=== PATIENT | female | born 1975 | race Caucasian/White ===

== ENCOUNTER 2024-09-04 13:21 | Outpatient (OUT) | payer BC, SELFPAY ==
--- NOTE | 2024-09-01 07:39 | V.VEINS.HP ---
Vital Signs 09/01/24 07:52 09/04/24 13:46 Height 5 ft 9 in Weight 145.15 kg BP 120/74 BP Location Left Brachial BP Position Sitting BP Cuff Size Adult BP Source Manual Cuff Respiration 16 Pulse 77 Pulse Source Monitor Pulse Oximetry (%) 96 Oxygen Delivery Method Room Air Comment The patient's blood pressure is elevated. Varicose Veins Patient is a 49 year old female in this day as a referral from Ruthie Gonsales NP at Dr. Buitrago's office secondary to superficial thrombophlebitis and varicosities with leg swelling and redness. Patient c/o bilateral leg edema and right upper leg pain. 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 Patient has worn bilateral leg knee high compression stockings for >5 years. Patient has no family history that she is aware of of varicose vein disease nor any previous history of blood clots up until this recent diagnosis. ILewis MD personally performed the services described in this documentation, as scribed by Larry Hoffman RN in my presence and it is both accurate and complete. ILarry RN, am scribing for, and in the presence of, Dr. Lewis Wilburn and in the presence of the patient. . thigh: bilateral (Symptoms right > left leg), knee: bilateral, calf: bilateral, ankle: bilateral and roberts: bilateral burning and cramping 8 2 years Worsened in recent months: No standing elevating extremities and exercise Reports limb pain, edema and leg edema History of lower extremity trauma: No Superficial thrombophlebitis: Yes Family history of varicose veins: no Has patient had previous lower extremity venous surgery: No Patient has previously received the following treatment(s) for lower extremity varicose veins: Reports none Does patient have a history of : no Does patient intend to have future pregnancies: no Has patient had lower extremity venous scan with relux testing: No Support hose used: Yes Problems walking or doing physical activity: Yes How does it affect you: Pain causes patient to have to walk or rest and elevate legs Do you walk much: Yes Do you stand much: Yes Review of Systems ROS Status of ROS 10 or more systems reviewed and unremarkable except as noted in history and below Cardiovascular Reports: edema Neurological Reports: weakness in extremities [facility] [place] Medical History (Updated 09/01/24 @ 07:55 by Larry Hoffman) Superficial thrombophlebitis of left leg ?I80.02 - Phlebitis and thrombophlebitis of superficial vessels of left lower extremity (ICD-10) Nonalcoholic fatty liver ?K76.0 - Fatty (change of) liver, not elsewhere classified (ICD-10) Vitamin D deficiency ?E55.9 - Vitamin D deficiency, unspecified (ICD-10) Pain due to varicose veins of both lower extremities ?I83.813 - Varicose veins of bilateral lower extremities with pain (ICD-10) Thalassemia ?D56.9 - Thalassemia, unspecified (ICD-10) Rosacea ?L71.9 - Rosacea, unspecified (ICD-10) Osteoarthritis ?M19.90 - Unspecified osteoarthritis, unspecified site (ICD-10) Primary hypertension ?I10 - Essential (primary) hypertension (ICD-10) Overactive bladder ?N32.81 - Overactive bladder (ICD-10) Mood disorder ?F39 - Unspecified mood [affective] disorder (ICD-10) Restless leg ?G25.81 - Restless legs syndrome (ICD-10) Iron deficiency ?E61.1 - Iron deficiency (ICD-10) Sciatic nerve pain ?M54.30 - Sciatica, unspecified side (ICD-10) Metabolic syndrome ?E88.810 - Metabolic syndrome (ICD-10) IgA deficiency ?D80.2 - Selective deficiency of immunoglobulin A [IgA] (ICD-10) Impaired fasting glucose ?R73.01 - Impaired fasting glucose (ICD-10) Hirsutism ?L68.0 - Hirsutism (ICD-10) Binge eating disorder ?F50.819 - Binge eating disorder, unspecified (ICD-10) Vitamin B12 deficiency ?E53.8 - Deficiency of other specified B group vitamins (ICD-10) ADD (attention deficit disorder) ?F98.8 - Other specified behavioral and emotional disorders with onset usually occurring in childhood and adolescence (ICD-10) Surgical History (Updated 09/04/24 @ 13:56 by Larry Hoffman) History of tonsillectomy and adenoidectomy ?Z90.89 - Acquired absence of other organs (ICD-10) Family History (Updated 09/04/24 @ 13:57 by Larry Hoffman) Other Family history of CHF (congestive heart failure) Family history of cancer Family history of diabetes mellitus Family history of hypertension Social History (Updated 09/04/24 @ 13:57 by Larry Hoffman) Within the past year, how often did you have a drink containing alcohol: never Score interpretation: A score less than 3 is consistent with normal alcohol consumption. Smoking status: Never smoker Non-prescribed substance use: denies use Meds Home Medications and Allergies Home Medications ?Medication ?Instructions ?Recorded ?Confirmed ?Type cariprazine 3 mg capsule (Vraylar) 3 mg PO DAILY 09/01/24 09/01/24 History chlorthalidone 25 mg tablet 25 mg PO DAILY 09/01/24 09/01/24 History diclofenac sodium 2 % topical 1 packet topical BID 09/01/24 09/01/24 History solution in packet fluoxetine 40 mg capsule (Prozac) 40 mg PO DAILY 09/01/24 09/01/24 History lisdexamfetamine 50 mg capsule 50 mg PO DAILY 09/01/24 09/01/24 History (Vyvanse) oxybutynin chloride 15 mg 15 mg PO DAILY 09/01/24 09/01/24 History tablet,extended release 24 hr spironolactone 100 mg tablet 100 mg PO DAILY 09/01/24 09/01/24 History (Aldactone) vitamin B complex (Complex B-100 1 tab PO DAILY 09/01/24 09/01/24 History tablet,extended release) Allergies Allergy/AdvReac Type Severity Reaction Status Date / Time amoxicillin Allergy Mild Rash Verified 09/01/24 07:47 latex Allergy Mild Rash Verified 09/01/24 07:47 nickel Allergy Mild Rash Verified 09/01/24 07:47 Exam Narrative Exam Narrative: Lewis Mckenzie MD personally performed the services described in this documentation, as scribed by Larry Hoffman RN in my presence and it is both accurate and complete. Larry Mckenzie RN, am scribing for, and in the presence of, Dr. Lewis Wilburn and in the presence of the patient. Constitutional Documenting provider has reviewed patient's vital signs: yes Common normals: oriented x3 Nutritional appearance: overweight Cardio Peripheral pulses: posterior tibial pulses present and dorsalis pedis pulses present Extremity Common normals: normal capillary refill General: calf tenderness and edema Right lower extremity: lower leg Right lower leg: inspection and palpation Left lower extremity: lower leg Left lower leg: inspection and palpation Neuro Common normals: oriented x3 Results Additional Findings Additional findings: Bilateral leg reflux u/x reveals bilateral leg great saphenous, small saphenous, and anterior accessory saphenous vein dilatation along with insufficiency. Thrombus noted to superficial varicose veins left calf and hat mender. Lastly, bilateral leg branch saphenous truncal tributary varicosities. Lewis Mckenzie MD personally performed the services described in this documentation, as scribed by Larry Hoffman RN in my presence and it is both accurate and complete. Larry Mckenzie RN, am scribing for, and in the presence of, Dr. Lewis Wilburn and in the presence of the patient. Assessment and Plan Assessment and Plan (1) Pain due to varicose veins of both lower extremities: Plan Patient to continue to wear knee high compression stockings, exercise, rest, and elevation. Patient to return for EVLTs of bilateral GSV's starting with left GSV, followed by EVLT of bilateral small saphenous veins, and lastly EVLTs of bilateral AASVs. Once EVLTs are complete, move forward with microfoam chemical ablation bilateral leg branch saphenous varicosities. Lewis Mckenzie MD personally performed the services described in this documentation, as scribed by Larry Hoffman RN in my presence and it is both accurate and complete. Larry Mckenzie RN, am scribing for, and in the presence of, Dr. Lewis Wilburn and in the presence of the patient.
--- NOTE | 2024-09-01 07:55 | W.VEIN ---
Discharge Plan Discharge Disposition: Home, Self-Care Outpatient Diagnostics: VC Endovenous Ablation 1VeinLT (Routine) Timeframe: 2 Months Facility: [facility] - Location: [facility] Ordered By: Lewis Wilburn Plan of Treatment: EVLT of left GSV Print Language: Moroccan Discharge Date/Time: 09/04/24 16:16
--- NOTE | 2024-09-04 | VEIN_ITS ---
Patient Name: DAREK MADRIGAL MR#: [id number] : 1975 Exam Date: 09/04/2024 Ordering Doctor: DR LEWIS WILBURN M.D. RADIOLOGY REPORT PROCEDURE: VC EXT VENOUS REFLUX ANUM LMTD COMPARISON: None. INDICATIONS: Pain due to varicose veins of bilateral legs I83.813 TECHNIQUE: Duplex imaging of the lower extremity to assess the deep and superficial venous system for the presence of deep or superficial venous incompetence and to document the location and severity of disease. The study includes evaluation of the great saphenous vein (GSV), anterior accessory saphenous vein (AASV) and small saphenous vein (SSV). Patient scanned in reverse Trendelenburg and standing. FINDINGS: RIGHT LOWER EXTREMITY: Saphenofemoral Junction Reflux: Yes 11.9mm 1.2 sec GSV: Diam (mm) Reflux/ Time (sec) Proximal Thigh 7.9 Yes 1.8 Mid Thigh 4.3 Yes 0.4 Distal Thigh 4.3 Yes 0.4 Prox Calf 4.8 Yes 3.8 Mid Calf 4.7 Yes 1.9 Saphenopopliteal Junction Reflux: 5.7mm Yes 0.5 SSV: Proximal Calf 6.3 Yes 0.5 Mid Calf 3.4 Yes 4.6 AASV: Proximal Thigh 6.8 Yes 1.7 Mid Thigh 4.1 Yes 0.6 Distal Thigh Thrombi: No acute or chronic thrombus. Compressibility: Normal. Flow: Mild deep venous reflux. Preforator: Distal medial lower leg 5.6 mm with 1.2s reflux. Mid medial lower leg 5.6 mm with 0.9s reflux. Tech Note: Incompetent varicose vein distal anterior thigh connected to AASV measures 7.8 mm with 4.9s reflux. Varicose vein lateral knee measures 6.6 mm with 4.8s reflux. Varicose vein lateral mid lower leg measures 7.3 mm with 4.7s reflux. Varicose vein medial anterior lower leg measures 4.9 mm with 1.7s reflux. LEFT LOWER EXTREMITY: Saphenofemoral Junction Reflux: Yes 12.4 mm 1.9 sec GSV: Diam (mm) Reflux/Time (sec) Proximal Thigh 7.0 Yes 0.5 Mid Thigh 5.1 Yes 0.6 Distal Thigh 5.7 Yes 0.7 Prox Calf 4.0 Yes 1.3 Mid Calf 3.9 Yes 1.5 Saphenopopliteal Junction Relux: 10.1 mm Yes 4.8 SSV: Proximal Calf 9.9 Yes 4.7 Mid Calf 6.6 Yes 4.7 AASV: Proximal Thigh 7.4 Yes 2.2 Mid Thigh 4.9 Yes 0.6 Distal Thigh Thrombi: Thrombus visualized in varicose veins in proximal posterior calf and mid medial calf. Thrombus extends into a commercial finance manager 9.7mm from PTV. Compressibility: No compressible segments of varicose veins. Flow: Moderate deep venous reflux. Senior Electrical Controls Engineer: Mid posterior calf off SSV measures 4.9 mm with 1.9s reflux. Lateral knee 3.5 mm with 0.9s reflux. Tech Note: Incompetent varicose vein proximal medial lower leg measures 6.9 mm with 3.4s reflux. Varicose vein mid medial thigh measures 4.3 mm with 1.0s reflux. Varicose vein distal lateral thigh measures 7.0 mm with 2.5s reflux. CONCLUSION: 1. Severe right and mild to moderate left great saphenous vein venous insufficiency with dilatation and saphenofemoral junction reflux 2. Severe bilateral small saphenous vein venous insufficiency with dilatation and saphenous popliteal junction reflux 3. Moderate bilateral anterior accessory saphenous venous insufficiency with dilatation 4. Thrombus in superficial varicose veins left calf and commercial finance manager vein 5. Bilateral incompetent perforating veins 6. Bilateral incompetent varicose veins Dictated by: Lewis Wilburn MD on 09/04/2024 at 14:57 Approved by: Lewis Wilburn MD on 09/04/2024 at 15:00
--- NOTE | 2024-09-04 | VEIN_ITS ---
Patient Name: DAREK MADRIGAL MR#: [id number] : 1975 Exam Date: 09/04/2024 Ordering Doctor: DR LEWIS WILBURN M.D. RADIOLOGY REPORT PROCEDURE: [facility] [place] - OFFICE VISIT INITIAL COMPARISON: None. PROGRESS NOTES: 49-year-old female who presents with a long history of lower extremity pain and swelling culminated in in superficial thrombophlebitis along the left medial and posterior calf. The patient was referred by Dr. Buitrago's office. The patient complains of bilateral lower extremity varicose veins with moderate pain despite wearing compression stockings intermittently for the past 5 years. No additional history of deep vein thrombus or pulmonary embolus. 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 The patient denies any signs and symptoms to suggest arterial ischemia. The patient describes a family history significant for congestive heart failure, cancer, diabetes and hypertension. The patient never drinks alcohol. The patient has never smoked. No prescription or illicit drug abuse. Past medical history is significant for sciatic nerve pain with right lateral leg numbness and tingling. Breasts leg, superficial thrombophlebitis, nonalcoholic fatty liver. Vitamin-D deficiency, thalassemia and osteoarthritis. See separate history and physical for medication list. No prior treatment for varicose or spider veins. Nursing notes were reviewed. After history and physical exam I discussed at length the pathophysiology of venous hypertension and possible treatments, therapies and strategies available. We discussed at length the importance of elevating the lower extremities above the level of the heart, increased physical activity and compression stocking use. We discussed conservative therapy with bilateral thigh-high or knee high compression stockings. We discussed surgical interventions including ligation stripping and phlebectomy. We discussed intravenous laser ablation, micro foam chemical ablation and injection sclerotherapy at length. Risks benefits and alternatives were discussed. The patient's questions were answered. Ultrasound venous reflux study performed the same day was discussed at length with the patient. The report demonstrates bilateral great saphenous, small saphenous and anterior accessory saphenous vein venous insufficiency with dilatation and saphenofemoral/saphenopopliteal junction reflux. Mild right and moderate left deep vein reflux. Bilateral incompetent perforating veins and bilateral incompetent varicose veins. Bilateral reticular and spider veins. PHYSICAL EXAM: The right leg demonstrates moderate varicose reticular and spider veins most significant along the anterior and lateral thigh and knee. Area of hemosiderin staining anterior mid to distal right lower leg. Mild subcutaneous edema below the knee The left leg demonstrates moderate varicose, reticular and spider veins. No hemosiderin staining. Mild subcutaneous edema below the knee Both thighs, legs and feet were symmetrically warm to the touch. Good posterior tibial and dorsalis pedis pulses were present bilaterally. VEIN/VC Facility NEW Comprehensive IMPRESSION: 1. Bilateral great, small and anterior accessory saphenous vein venous insufficiency with dilatation 2. Moderate bilateral lower extremity varicose veins 3. Mild bilateral lower extremity subcutaneous edema with right leg hemosiderin staining 4. No definite flow significant arterial disease 5. CEAP: C4a, Ep, Asp, Pr 6. Spontaneous superficial thrombophlebitis of left leg varicose veins PLAN: 1. Endovenous laser ablation left great saphenous vein followed by right great saphenous vein followed by left small saphenous vein followed by right small saphenous vein followed by left anterior accessory saphenous vein followed by right anterior accessory saphenous vein 2. Micro foam chemical ablation bilateral incompetent varicose veins 3. Micro foam chemical ablation of reticular and spider veins 4. Long-term use of bilateral knee and thigh-high compression stockings to control deep vein reflux 5. Weight loss and increase in physical activity for symptomatic relief Nurse notes, history and physical were reviewed and confirmed, see attached forms. The nurse was present throughout the physical exam and consultation Dictated by: Lewis Wilburn MD on 09/04/2024 at 15:43 Approved by: Lewis Wilubrn MD on 09/04/2024 at 15:51
[2024-09-04 13:46] VITALS: BP 120/74; PULSE 77; O2SAT 96
== END 2024-09-04 16:16 | disposition home or self-care (01) ==
PROVIDERS: Family Provider Internal Medicine; PCP Radiology Diagnostic Radiology; Visit Provider Radiology Diagnostic Radiology
DX: I83.813 Varicose veins of bilateral lower extremities with pain (principal)
CPT/HCPCS: 93970; G0463